=== PATIENT | male | born 1975 | race Caucasian/White ===

== ENCOUNTER 2021-09-02 18:29 | Emergency (ER) | payer OTHER ==
[~2021-09-02] VITALS: Ht 170.2 cm; Wt 88.9 kg
--- NOTE | 2021-09-02 18:29 | NUR ---
PT TAKEN TO C VIA [facility] OFFICER.
[2021-09-02 18:39] VITALS: BP 189/107
--- NOTE | 2021-09-02 18:46 | NUR ---
PATIENT BIB [facility] OFFICER. PATIENT EXAMINED BY DR. HOGUE. PATIENT MEDICALLY CLEARED AND RELEASED IN CUSTODY IN STABLE CONDITION. ORIGINAL PRE-BOOK FORM GIVEN TO OFFICER CLEMENTE.
--- NOTE | 2021-09-02 18:47 | NUR ---
NO NURSING ASSESSMENT NEEDED NO INTERVENTIONS ORDERED.
[2021-09-02 18:48] VITALS: BP 189/107
== END 2021-09-02 18:46 ==
LOC: MED 18:29
DX: I10 Essential (primary) hypertension (principal); Z02.89 Encounter for other administrative examinations
CPT/HCPCS: 99283